=== PATIENT | male | born 2000 | race American Indian/Alaskan Native ===

== ENCOUNTER 2020-07-13 05:35 | Emergency (ER) | payer OTHER ==
[2020-07-13] MEDS ORDERED: HALOPERIDOL LACTATE 5 MG/1 ML INJ IM ONE (06:13)
[2020-07-13] MEDS ORDERED: ZIPRASIDONE MESYLATE 20 MG VIAL IM ONE (06:13)
[2020-07-13] MEDS ORDERED: diphenhydrAMINE 50 MG/ML VIAL IM ONE (06:13)
[2020-07-13] MEDS ORDERED: WATER FOR INJ Sterile (PF) 10 ML ONE (06:34)
--- NOTE | 2020-07-13 07:09 | Emergency Department Report ---
ED Psych HPI - General Chief Complaint: Psych Stated Complaint: MH Time Seen by Provider: 07/13/20 06:12 Source: patient, family Mode of arrival: Ambulatory Limitations: Altered Mental Status - History of Present Illness Initial Comments: Chief complaint: Abnormal behavior HPI: History unobtainable from patient due to his current mental status. This is a 20-year-old male with history of mental health disorder who was taken to outside hospital low. Patient states "I want to hurt people want to hurt me". He has auditory hallucinations. He hears voices. Family states that he has been speaking with her person. Patient roommate notified family that he has been acting strange. He recently was hospitalized at [facility] for 10 days. Patient is obviously paranoid. His main concern is sitting under #[id number]. He states "why do you have me in this room?. Why do you have me under this number?" MD Complaint: altered mental status, other (Abnormal behavior) -: days(s) (Several days) Associated Psychiatric Symptoms: auditory hallucinations, other (Paranoia abnormal behavior) History of same: Yes Quality: constant Worsens With: none Context: other (Recent psychiatric hospitalization) Associated Symptoms: other (Patient denies physical complaints) If Self Harm: other (He wants to hurt other people) - Related Data Allergies Allergy/AdvReac Type Severity Reaction Status Date / Time No Known Allergies Allergy Verified 07/13/20 06:49 ED Review of Systems ROS: Stated complaint: MH Other details as noted in HPI Comment: All other systems reviewed and negative Constitutional: denies: fever, malaise Respiratory: denies: cough Cardiovascular: denies: chest pain Gastrointestinal: denies: abdominal pain, nausea, vomiting ED Past Medical Hx - Past Medical History Previous Medical History?: Yes - Surgical History Past Surgical History?: No - Social History Smoking Status: Never Smoker Substance Use Type: None ED Physical Exam - General Limitations: No Limitations General appearance: alert, in no apparent distress, other (restless, paranoia, ) - Head Head exam: Present: atraumatic, normocephalic - Eye Eye exam: Present: normal appearance - ENT ENT exam: Present: mucous membranes moist - Neck Neck exam: Present: normal inspection, full ROM - Respiratory Respiratory exam: Present: normal lung sounds bilaterally. Absent: respiratory distress, wheezes, rales, rhonchi - Cardiovascular Cardiovascular Exam: Present: regular rate, normal rhythm, normal heart sounds. Absent: systolic murmur, diastolic murmur, rubs, gallop - GI/Abdominal GI/Abdominal exam: Present: soft, normal bowel sounds. Absent: distended, tenderness, guarding, rebound - Rectal Rectal exam: Present: deferred - Extremities Exam Extremities exam: Present: normal inspection - Neurological Exam Neurological exam: Present: alert, oriented X3 - Psychiatric Psychiatric exam: Present: agitated, other (Paranoid paranoid agitated restless pressured speech) - Skin Skin exam: Present: warm, dry, intact, normal color. Absent: rash ED Course Vital Signs 07/13/20 07/13/20 06:02 06:49 Temperature 97.8 F Pulse Rate 75 Respiratory 18 18 Rate Blood Pressure 147/76 O2 Sat by Pulse 97 Oximetry ED Medical Decision Making - Medical Decision Making Mr. Bhatia presents with acute psychosis. Obvious paranoia. He reports auditory hallucinations. Also reports homicidal ideation. 1013 form is completed. Involuntary hold ordered. Anticipate transfer to psychiatric facility for stabilization. Patient is medically clear for psychiatric care. I have reviewed labs obtained. CBC chemistry serum toxicology screen all within normal limits. Patient is medically clear for psychiatric care. Critical care attestation.: If time is entered above; I have spent that time in minutes in the direct care of this critically ill patient, excluding procedure time. ED Disposition Clinical Impression: Acute psychosis Disposition: [id number]/TX-70 ANOTHER TYPE HLTHCARE Is pt being admited?: No Does the pt Need Aspirin: No Condition: Stable Referrals: [facility] [Other] - 3-5 Days
[2020-07-13 07:33] LABS: Basophils % (Auto) 0.3 % (0.0-1.8); Eosinophils # (Auto) 0.1 K/mm3 (0.0-0.4); Eosinophils % (Auto) 0.9 % (0.0-4.3); Hematocrit 42.5 % (35.5-45.6); Hemoglobin 14.2 gm/dl (11.8-15.2); Lymphocytes # (Auto) 1.4 K/mm3 (1.2-5.4); Mean Corpuscular HGB Conc 34 % (32-34); Mean Corpuscular Volume 97 fl (84-94); Monocytes # (Auto) 0.9 K/mm3 (0.0-0.8); Monocytes % (Auto) 13.3 % (0.0-7.3); Platelet Count 244 K/mm3 (140-440); Red Blood Count 4.37 M/mm3 (3.65-5.03); Red Cell Distribution Width 12.9 % (13.2-15.2)
[2020-07-13 07:51] LABS: Blood Urea Nitrogen 11 mg/dL (9-20); Calcium 9.1 mg/dL (8.4-10.2); Hemolysis Index 39
[2020-07-13 07:56] LABS: BUN/Creatinine Ratio 18
--- NOTE | 2020-07-13 10:08 | Consultation ---
History of Present Illness - Reason for Consult Consult date: 07/13/20 Reason for consult: SI/HI, hallucinations - History of Present Psychiatric Illness Navid Bhatia is a 20y/o male patient who presented to the ER for homicidal and suicidal thoughts and auditory hallucinations. It is documented that family says the patient has been talking to someone and acting strange. He was recently hospitalized at [facility] according to medical record. I attempted to interview the patient this morning, he is lying down and would not respond to questioning. He only stares at me. After several attempts to get the patient to respond, he then says "I need help." His speech is garbled. The patient then holds up one finger continuously and points. PAST PSYCHIATRIC HISTORY Unable to assess PAST MEDICAL HISTORY: none reported Family Psychiatric History: None reported or documented SOCIAL HISTORY Unable to asses REVIEW OF SYSTEMS Unable to assess MENTAL STATUS EXAMINATION unable to assess Assessment and Plan (1) Schizoaffective Disorder Treatment Plan Started Risperidone 0.25mg po BID Start Trazodone 50mg po qhs Start Geodon 20mg IM q6h prn agitation Risks, benefits and alternatives of medications discussed with the patient, questions answered and consent obtained from patient. PSYCHOTHERAPY: Supportive psychotherapy provided MEDICAL: Per primary team DELIRIUM PRECAUTIONS: Please re-orient patient frequently, keep lights on during the day, and minimize benzodiazepines and opiates as these medications could worsen patient's confusion. INCLUSION PARAEDUCATOR: Defer to primary DISPOSITION: Recommend acute inpatient psychiatric hospitalization at this time. LEGAL STATUS: 1013 FOLLOW-UP: Will follow Thank you for the consult. Please contact with any questions and/or concerns. Case staffed with Dr. Dominguez Medications and Allergies Allergies Allergy/AdvReac Type Severity Reaction Status Date / Time No Known Allergies Allergy Verified 07/13/20 06:49 Mental Status Exam - Vital signs Last Vital Signs Temp 97.8 F 07/13/20 06:02 Pulse 75 07/13/20 06:02 Resp 18 07/13/20 06:49 BP 147/76 07/13/20 06:02 Pulse Ox 97 07/13/20 06:02 Results Result Diagrams: 07/13/20 07:03 07/13/20 07:03 Abnormal lab results 07/13/20 07/13/20 07/13/20 Range/Units 07:03 07:03 07:03 MCV (84-94) fl MCH (28-32) pg RDW (13.2-15.2) % Dolores % (Auto) (0.0-7.3) % Dolores # (Auto) (0.0-0.8) K/mm3 Creatinine 0.6 L (0.8-1.3) mg/dL Salicylates < 0.3 L (2.8-20.0) mg/dL Acetaminophen 5.0 L (10.0-30.0) ug/mL 07/13/20 Range/Units 07:03 MCV 97 H (84-94) fl MCH 33 H (28-32) pg RDW 12.9 L (13.2-15.2) % Dolores % (Auto) 13.3 H (0.0-7.3) % Dolores # (Auto) 0.9 H (0.0-0.8) K/mm3 Creatinine (0.8-1.3) mg/dL Salicylates (2.8-20.0) mg/dL Acetaminophen (10.0-30.0) ug/mL All other labs normal.
[2020-07-13] MEDS ORDERED: ZIPRASIDONE MESYLATE 20 MG VIAL IM PRN (10:15)
[2020-07-13 10:31] LABS: Bilirubin,Urine NEG (Negative); Blood,Urine NEG (Negative); Color,Urine Straw (Yellow); Mucus,Urine FEW /HPF; Protein,Urine <15 mg/dL mg/dL (Negative); Urobilinogen,Urine < 2.0 mg/dL (<2.0)
[2020-07-13 10:34] VITALS: BP 168/82
[2020-07-13 10:36] LABS: Amphetamine Screen,Urine Negative; Benzodiazepines Screen,Urine Negative; Cannabinoid Screen,Urine Negative; Cocaine Screen,Urine Negative; Methadone Screen,Urine Negative; Opiate Screen,Urine Negative
[2020-07-13 10:37] LABS: WBC,Urine < 1.0 /HPF (0.0-6.0)
[2020-07-13] MEDS ORDERED: risperiDONE 0.25 MG TAB PO SCH (11:00)
[2020-07-13] MEDS ORDERED: traZODone 50 MG TAB PO SCH (22:00)
== END 2020-07-13 19:22 | disposition other institution (70) ==
LOC: ED 05:35
DX: F23 Brief psychotic disorder (principal)
CPT/HCPCS: 36415; 80048; 80307; 81001; 85025; 96372; 99285; J1200; J1630; J3486; 80320; G0480